=== PATIENT | female | born 1955 | race Caucasian/White ===

== ENCOUNTER → 2023-03-18 11:30 | Outpatient (CLI) | payer MEDICARE, OTHER, SELFPAY ==
--- NOTE | 2023-03-18 14:12 | DI.MRI.S_ITS ---
BREAST MRI OF BOTH BREASTS: 03/18/2023 CLINICAL: Right breast cancer. Comparison is made to exams dated: 02/25/2023 ultrasound biopsy, 02/25/2023 mammogram, 02/18/2023 ultrasound, 02/18/2023 mammogram, 06/17/2021 mammogram, and 06/10/2018 mammogram - [facility]. PROCEDURE: MR BREAST BI WO/W CON INDICATIONS: Intraductal carcinoma in situ of right breast TECHNIQUE: The patient was placed prone in a dedicated breast imaging coil. Precontrast axial STIR and 3D FLASH without fat saturation sequences were obtained. Both before and after bolus injection of contrast, sequential 1-minute axial 3D FLASH with fat saturation sequences for 3 time points, with subtraction images and maximum intensity projections (MIP's) generated. Delayed sagittal FLASH images with fat saturation were also obtained. Computer-aided detection, including computer algorithm analysis of MRI image data for lesion detection and characterization, pharmacokinetic analysis, with further physician review for interpretation, was performed. FINDINGS: Image quality: Excellent. There is mild background parenchymal enhancement. Right breast: In the 3 o'clock position of the right breast, there is an irregular mass with spiculated margins measuring 9 x 9 x 9 mm, corresponding to previously biopsied widening. Size is concordant with sonographic appearance. No other suspicious mass, focus, or non mass enhancement the right breast. Left breast: No suspicious mass, non-mass enhancement, or focus in the left breast. Miscellaneous: No suspicious axillary or internal mammary adenopathy identified. The partially visualized upper abdomen and anterior mediastinum are unremarkable. IMPRESSION: KNOWN BIOPSY PROVEN MALIGNANCY Irregular spiculated mass corresponding to biopsy-proven malignancy in the right breast at the 3 o'clock position. No other suspicious finding identified in either breast. No suspicious axillary or internal mammary adenopathy identified. BIRADS 6 This exam was interpreted at Station ID: [id number]. Electronically Signed By: Kyle Ledezma M.D. lc/:03/19/2023 11:46:02 ACR BI-RADS Category 6: Known biopsy proven malignancy [id number]
== END ==
PROVIDERS: PCP Registered Nurse; Referring Provider Internal Medicine Hematology & Oncology; Visit Provider Internal Medicine Hematology & Oncology
DX: C50.811 Malignant neoplasm of overlapping sites of right female breast; Z17.1 Estrogen receptor negative status [ER-]
CPT/HCPCS: 77049; A9579